=== PATIENT | female | born 1995 | race Caucasian/White ===

== ENCOUNTER 2017-03-25 09:01 | Emergency (ER) | payer MEDICAID, OTHER ==
--- NOTE | 2017-03-25 09:20 | ERPHSYRPT ---
- History of Present Illness Time Seen by Provider: 03/25/17 09:14 Source: patient Exam Limitations: no limitations Patient Subjective Stated Complaint: Pt c/o sore throat and fever for last couple days. Also states that her "skin thomson and feels like acid". It hurts to wear clothes. Pt states she has had orange diarrhea and nausea since yesterday. Triage Nursing Assessment: Pt alert and oriented x 3. skin pink warm and dry. afebrile. throat appears to be red. airway patent Physician History: Sore throat began yesterday along with temp 101.7 this AM. Nasal congestion/ drainage, nausea and diarrhea. Took Tylenol with min relief. No cough, vomiting, chest pain or SOB. States gen fatigue with myalgia. Two daughters with OM's. Timing/Duration: yesterday Cough Quality/Degree: no cough Possible Cause: occasional episodes Modifying Factors: Improves With: other (swallowing worsens) Associated Symptoms: fever, chills, nasal congestion, nasal drainage, sore throat, No chest pain/soreness, No cough, No dizziness, No headache, No shortness of breath Allergies/Adverse Reactions: amphetamine aspartate [From Adderall] Allergy (Verified 07/27/16 05:21) amphetamine sulfate [From Adderall] Allergy (Verified 07/27/16 05:21) dextroamphetamine saccharate [From Adderall] Allergy (Verified 07/27/16 05:21) dextroamphetamine sulfate [From Adderall] Allergy (Verified 07/27/16 05:21) Home Medications: No Reportable Medications [No Reported Medications] 07/27/16 [History] Hx Tetanus, Diphtheria Vaccination/Date Given: Yes Hx Influenza Vaccination/Date Given: Yes Hx Pneumococcal Vaccination/Date Given: No Immunizations Up to Date: Yes - Review of Systems Constitutional: No Fever, No Chills Eyes: No Symptoms Ears, Nose, & Throat: Nose Congestion, Nose Discharge, Throat Pain, Painful Swallowing, No Ear Pain, No Ear Discharge Respiratory: No Cough, No Dyspnea Cardiac: No Chest Pain, No Edema, No Syncope Abdominal/Gastrointestinal: No Abdominal Pain, No Nausea, No Vomiting, No Diarrhea Genitourinary Symptoms: No Dysuria Musculoskeletal: No Back Pain, No Neck Pain Skin: No Rash Neurological: No Dizziness, No Focal Weakness, No Sensory Changes Psychological: No Symptoms Endocrine: No Symptoms All Other Systems: Reviewed and Negative - Past Medical History Pertinent Past Medical History: Yes GI Medical History: Gallbladder Disease Psycho-Social History: Anxiety, Attention Deficit Disorder, Bipolar, Depression - Past Surgical History Past Surgical History: Yes Gastrointestinal: Cholecystectomy Other Surgical History: WARTS REMOVED FROM FEET - Social History Smoking Status: Current every day smoker Exposure to second hand smoke: Yes Drug Use: none Patient Lives Alone: No Significant Family History: no pertinent family hx - Female History Hx Last Menstrual Period: 2 weeks ago - Nursing Vital Signs Nursing Vital Signs: Initial Vital Signs Temperature 99 F Temperature Source Oral Pulse Rate 97 Respiratory Rate 16 Blood Pressure [Right Arm] 125/76 Pain Intensity 9 - Physical Exam General Appearance: no apparent distress, alert Eye Exam: PERRL/EOMI, eyes nml inspection Ears, Nose, Throat Exam: normal ENT inspection, TMs normal, moist mucous membranes, pharyngeal erythema, No tonsillar exudate Neck Exam: normal inspection, non-tender, supple, full range of motion Respiratory Exam: normal breath sounds, lungs clear, No respiratory distress Cardiovascular Exam: regular rate/rhythm, normal heart sounds Gastrointestinal/Abdomen Exam: soft, No tenderness Back Exam: normal inspection, No CVA tenderness, No vertebral tenderness Extremity Exam: normal inspection, normal range of motion Neurologic Exam: alert, oriented x 3, cooperative, normal mood/affect, sensation nml, No motor deficits Skin Exam: normal color, warm, dry, No rash Lymphatic Exam: No adenopathy SpO2: 100 Oxygen Delivery: Room Air - Course Nursing assessment & vital signs reviewed: Yes Ordered Tests: Active Orders 24 hr Category Date Time Status STREP SCREEN-BETA A Stat Lab 03/25/17 09:21 Completed Medication Summary Discontinued Medications Generic Name Dose Route Start Last Admin Trade Name Freq PRN Reason Stop Dose Admin Penicillin G Benzathine 1.2 mu 03/25/17 10:02 Bicillin L-A 1.2 Mu/2ml Syringe IM 03/25/17 10:03 STAT ONE Lab/Rad Data: Laboratory Results 03/25/17 Range/Units 09:21 Streptococcus Screen POSITIVE (Negative) - Progress Progress: improved Progress Note: 03/25/17 10:03 Strep positive. Pt. given Bicillin LA 1.2 million units Antibiotics given: Yes Counseled pt/family regarding: lab results, diagnosis - Departure Time of Disposition: 10:04 Departure Disposition: Home Clinical Impression: Strep pharyngitis, Pharyngitis Condition: Stable Critical Care Time: No Instructions: Strep Throat Additional Instructions: Motrin or Tylenol for fever May use Chloraseptic sprays/throat lozenges for sore throat. Return for worse sore throat, fever, difficulty swallowing or any problems.
[2017-03-25] MEDS ORDERED: Bicillin L-A 1.2 Mu/2ML SYRINGE IM ONE ×2 (10:02→10:07)
[2017-03-25 10:30] VITALS: BP 113/71; PULSE 93; O2SAT 97
== END 2017-03-25 10:30 | disposition home or self-care (01) ==
LOC: ED 09:01
DX: J02.0 Streptococcal pharyngitis (principal)
CPT/HCPCS: 87430; 96372; 99284; J0561

== ENCOUNTER 2017-07-23 | Emergency (ER) | payer OTHER ==
[2017-07-23 00:17] VITALS: O2SAT 99
[2017-07-23] MEDS ORDERED: Carafate 1 GM PO ONE ×2 (00:18→00:24)
[2017-07-23] MEDS ORDERED: TORAdol 30 mg Injection IV ONE (00:27)
--- NOTE | 2017-07-23 00:27 | ERPHSYRPT ---
- History of Present Illness Time Seen by Provider: 07/23/17 00:10 Historian: patient Exam Limitations: no limitations Physician History: chest pain x 2 days; anterior mid sternum; burning; no travel; no exposures; no prior hx; no cough or SOB; no fever or chills; no trauma; increased with deep breath; no other complaints or symptoms Timing/Duration: yesterday (onset), intermittent, worse Activities at Onset: rest Quality: burning Location: central Chest Pain Radiation: no radiation Severity of Pain-Max: moderate Severity of Pain-Current: moderate Modifying Factors: Improves With: breathing Associated Symptoms: heartburn, hurts to breathe Prior Chest Pain/Cardiac Workup: no prior chest pain Nitro Today/Relief: no nitro taken today Aspirin Treatment Today: no aspirin today Allergies/Adverse Reactions: amphetamine [From Adderall] Allergy (Verified 07/23/17 00:25) dextroamphetamine [From Adderall] Allergy (Verified 07/23/17 00:25) - Review of Systems Constitutional: No Symptoms Eyes: No Symptoms Ears, Nose, & Throat: No Symptoms Respiratory: No Cough, No Dyspnea, No Wheezing Cardiac: Chest Pain, No Palpitations, No Syncope Abdominal/Gastrointestinal: No Abdominal Pain, No Nausea, No Vomiting, No Diarrhea Genitourinary Symptoms: No Symptoms Musculoskeletal: No Symptoms Skin: No Symptoms Neurological: No Symptoms Psychological: Anxiety, No Alcohol Abuse, No Drug Abuse Endocrine: No Symptoms Hematologic/Lymphatic: No Symptoms Immunological/Allergic: No Symptoms - Past Medical History Pertinent Past Medical History: Yes Psycho-Social History: Attention Deficit Disorder, Bipolar - Past Surgical History Past Surgical History: Yes Gastrointestinal: Cholecystectomy - Social History Smoking Status: Current every day smoker Exposure to second hand smoke: Yes Alcohol Use: Socially Drug Use: none Patient Lives Alone: No Significant Family History: heart disease, hypertension - Female History Hx Now: No - Nursing Vital Signs Nursing Vital Signs: Initial Vital Signs Temperature 98.2 F 07/23/17 00:01 Pulse Rate 94 H 07/23/17 00:01 Respiratory Rate 20 07/23/17 00:01 Blood Pressure 130/99 07/23/17 00:01 O2 Sat by Pulse Oximetry 99 07/23/17 00:01 Pain Scale Pain Intensity 6 - Physical Exam General Appearance: mild distress, alert, thin Eye Exam: PERRL/EOMI, eyes nml inspection, No photophobia Ears, Nose, Throat Exam: normal ENT inspection, TMs normal, pharynx normal, moist mucous membranes Neck Exam: normal inspection, non-tender, supple, full range of motion, No meningismus, No JVD, No subcutaneous emphysema Respiratory Exam: normal breath sounds, lungs clear, airway intact, No chest tenderness, No respiratory distress, No rhonchi, No wheezing, No pleural rub Cardiovascular Exam: regular rate/rhythm, normal heart sounds, normal peripheral pulses, capillary refill <2 sec, No murmur, No friction rub Gastrointestinal/Abdomen Exam: soft, normal bowel sounds, No tenderness, No guarding, No rebound, No organomegaly Pelvic Exam: deferred Rectal Exam: deferred Back Exam: normal inspection, normal range of motion, No CVA tenderness, No vertebral tenderness, No rash Extremity Exam: normal inspection, normal range of motion, No ana's sign, No pedal edema Neurologic Exam: alert, oriented x 3, cooperative, room clerk II-XII nml as tested, normal mood/affect, nml cerebellar function, nml station & gait Skin Exam: normal color, warm, dry, No rash SpO2 Interpretation: normal SpO2: 99 Oxygen Delivery: Room Air - Course Nursing assessment & vital signs reviewed: Yes EKG Interpreted by Me: RATE (60), Sinus Rhythm, NORMAL AXIS, NORMAL INTERVALS, NORMAL QRS, NORMAL ST-T Rhythm Strip: Rate (60), Normal Sinus Rhythm - Radiology Exams Chest X-ray Interpretation: Interpreted by me, Negative, No Pneumonia, No Pneumothorax , Nml Alignment, Nml Heart Size, No Infiltrates, Other (some stranding LLL suspect atelectasis) Ordered Tests: Active Orders 24 hr Category Date Time Status Diesel Engine Mechanic Apprentice STAT Care 07/23/17 00:19 Active EKG-ER Only STAT Care 07/23/17 00:18 Active Pulse Oximetry (ED) STAT Care 07/23/17 00:18 Active Re-Check Vital Signs STAT Care 07/23/17 00:18 Active CHEST 1 VIEW (PORTABLE) Stat Exams 07/23/17 12:44 Taken BMP Stat Lab 07/23/17 00:37 Completed CBC W DIFF Stat Lab 07/23/17 00:37 Completed Medication Summary Generic Name Dose Route Start Last Admin Trade Name Freq PRN Reason Stop Dose Admin Potassium Chloride 40 meq 07/23/17 10:00 07/23/17 01:33 Potassium Chl 40 Meq/30 Ml Oral Solution PO 08/22/17 09:59 40 meq DAILY MARIAN Administration Discontinued Medications Generic Name Dose Route Start Last Admin Trade Name Alcira PRN Reason Stop Dose Admin Ketorolac Tromethamine 30 mg 07/23/17 00:27 07/23/17 00:33 Toradol 30 Mg Injection IV 07/23/17 00:28 30 mg STAT ONE Administration Ketorolac Tromethamine Confirm 07/23/17 00:32 Toradol 30 Mg Injection Administered 07/23/17 00:33 Dose 30 mg .ROUTE .STK-MED ONE Olanzapine 10 mg 07/23/17 01:10 07/23/17 01:14 Zyprexa Zydis 5 Mg PO 07/23/17 01:11 10 mg STAT ONE Administration Olanzapine Confirm 07/23/17 01:13 Zyprexa Zydis 5 Mg Administered 07/23/17 01:14 Dose 10 mg PO .STK-MED ONE Sucralfate 1 g 07/23/17 00:18 07/23/17 00:25 Carafate 1 Gm PO 07/23/17 00:19 1 g STAT ONE Administration Sucralfate Confirm 07/23/17 00:24 Carafate 1 Gm Administered 07/23/17 00:25 Dose 1 g PO .STK-MED ONE Lab/Rad Data: Laboratory Result Diagrams 07/23/17 00:37 07/23/17 00:37 Laboratory Results 07/23/17 07/23/17 Range/Units 00:37 00:37 WBC 7.9 (4.0-10.5) K/mm3 RBC 4.54 (4.1-5.4) M/mm3 Hgb 13.1 (12.0-16.0) gm/dl Hct 39.0 (35-47) % MCV 85.9 (78-100) fl MCH 28.9 (26-32) pg MCHC 33.6 (32-36) g/dl RDW 13.2 (11.5-14.0) % Plt Count 196 (150-450) K/mm3 MPV 11.1 H (6-9.5) fl Gran % 57.5 (36.0-66.0) % Lymphocytes % 34.0 (24.0-44.0) % Monocytes % 6.9 (0.0-12.0) % Eosinophils % 1.5 (0.00-5.0) % Basophils % 0.1 (0.0-0.4) % Basophils # 0.01 (0-0.4) Sodium 140 (136-145) mEq/L Potassium 3.1 L (3.5-5.1) mEq/L Chloride 105 (98-107) mEq/L Carbon Dioxide 23.4 (21-32) mEq/L Anion Gap 14.9 (5-15) MEQ/L BUN 11 (9-20) mg/dL Creatinine 0.86 (0.55-1.30) mg/dl Estimated GFR > 60 ML/MIN Glucose 93 (70-110) MG/DL Calcium 9.1 (8.5-10.1) mg/dL reviewed - Progress Progress: improved (after meds), re-examined (after xr and meds) Air Movement: good Progress Note: 07/23/17 00:26 IV started; ekg wnl; labs pending; will give meds; monitor and recheck 07/23/17 01:09 rechecked and some relief of discomfort with meds; cbc wnl, cxr wnl; sats ok; vs okwill monitor and recheck 07/23/17 01:30 K+ = low 3.1; will give K+ supplement and recheck; treatment plan discussed and instructions given Blood Culture(s) Obtained: No Antibiotics given: No Counseled pt/family regarding: lab results, diagnosis, need for follow-up, rad results, smoking cessation - Departure Time of Disposition: 01:34 Departure Disposition: Home Clinical Impression: Hypokalemia, Chest pain, Anxiety Condition: Stable Critical Care Time: No Referrals: DOCTOR,NO FAMILY [Primary Care Provider] - Instructions: Anxiety -- Adult, Atypical Chest Pain, Hypokalemia Additional Instructions: K+ rich diet; follow up lmd Follow-up with family doctor as directed. Call for appointment. Return if any problems. If you smoke please stop. Call or follow up with your family doctor for assistance if you need it to stop. Please wear your seatbelt when driving. Have a nice day. Thank you for allowing us to participate in your care today. :o) Dr Edi Sparrow Prescriptions: Potassium Chloride 20 Meq Inj [Potassium Chloride 20 MEQ INJECTION] 20 meq IV QAM #20 vial
[2017-07-23] MEDS ORDERED: TORAdol 30 mg Injection ONE (00:32)
[2017-07-23 00:47] LABS: BASOPHIL % 0.1 % (0.0-0.4); Eosinophil % 1.5 % (0.00-5.0); Granulocytes % 57.5 % (36.0-66.0); Mean Cell Volume 85.9 fl (78-100); Mean Corpuscular Hemoglobin 28.9 pg (26-32); Mean Platelet Volume 11.1 fl (6-9.5); Monocytes % 6.9 % (0.0-12.0); Platelet Count 196 K/mm3 (150-450); Red Blood Count 4.54 M/mm3 (4.1-5.4); Red Cell Distribution Width 13.2 % (11.5-14.0); White Blood Count 7.9 K/mm3 (4.0-10.5)
[2017-07-23 01:04] LABS: ANION GAP 14.9 MEQ/L (5-15); BLOOD UREA NITROGEN 11 mg/dL (9-20); CHLORIDE 105 mEq/L (98-107); Carbon Dioxide 23.4 mEq/L (21-32); Glucose 93 MG/DL (70-110); Potassium 3.1 mEq/L (3.5-5.1); SODIUM 140 mEq/L (136-145)
[2017-07-23 01:10] VITALS: BP 110/76; PULSE 66
[2017-07-23] MEDS ORDERED: Zyprexa Zydis 5 MG PO ONE ×2 (01:10→01:13)
[2017-07-23] MEDS ORDERED: POTASSIUM CHL 40 MEQ/30 ML ORAL SOLUTION ONE (01:33)
--- NOTE | 2017-07-23 08:13 | XRAY ---
Indication: Chest pain. Comparison: None Portable chest demonstrates normal heart, lungs, and bony thorax with a few incidental calcified granulomas.
[2017-07-23] MEDS ORDERED: POTASSIUM CHL 40 MEQ/30 ML ORAL SOLUTION PO SCH (10:00)
== END 2017-07-23 01:47 | disposition home or self-care (01) ==
LOC: ED → MERGE → ED 01:47
DX: E87.6 Hypokalemia (principal); R07.9 Chest pain, unspecified; F41.9 Anxiety disorder, unspecified
CPT/HCPCS: 36415; 71010; 80048; 85025; 93005; 93041; 96374; 99284; J1885; A9270-GY

== ENCOUNTER 2017-12-14 16:23 | Emergency (ER) | payer OTHER ==
[2017-12-14 16:53] VITALS: O2SAT 98
--- NOTE | 2017-12-14 16:58 | ERPHSYRPT ---
- History of Present Illness Time Seen by Provider: 12/14/17 16:52 Source: patient Exam Limitations: no limitations Physician History: patient states she's had sore throat and dry cough for past 2 days. Patient states progressive her family has similar illness. Patient denies any earache, vomiting, diarrhea, shortness of breath, dizziness or weakness Timing/Duration: day(s) (2) Cough Quality/Degree: dry cough Possible Cause: no prior episodes Modifying Factors: Improves With: coughing (worsens), exertion (worsens) Associated Symptoms: cough (dry), nasal congestion, nasal drainage, sore throat , No fever, No chills, No dizziness, No earache International travel in last 2 weeks: No Allergies/Adverse Reactions: amphetamine [From Adderall] Allergy (Verified 07/23/17 00:25) amphetamine aspartate [From Adderall] Allergy (Verified 07/27/16 05:21) amphetamine sulfate [From Adderall] Allergy (Verified 07/27/16 05:21) dextroamphetamine [From Adderall] Allergy (Verified 07/23/17 00:25) dextroamphetamine saccharate [From Adderall] Allergy (Verified 07/27/16 05:21) dextroamphetamine sulfate [From Adderall] Allergy (Verified 07/27/16 05:21) Home Medications: No Reportable Medications [No Reported Medications] 07/27/16 [History] Hx Tetanus, Diphtheria Vaccination/Date Given: Yes Hx Influenza Vaccination/Date Given: Yes Hx Pneumococcal Vaccination/Date Given: No - Review of Systems Constitutional: Malaise, No Fever, No Chills Eyes: No Symptoms Ears, Nose, & Throat: Nose Congestion, Nose Discharge, Throat Pain Respiratory: Cough, No Dyspnea, No Dyspnea on Exertion (HANNA) Cardiac: No Chest Pain, No Edema, No Syncope Abdominal/Gastrointestinal: No Abdominal Pain, No Nausea, No Vomiting, No Diarrhea Genitourinary Symptoms: No Dysuria Musculoskeletal: No Back Pain, No Neck Pain Skin: No Rash Neurological: No Dizziness, No Focal Weakness, No Sensory Changes Psychological: No Symptoms Endocrine: No Symptoms All Other Systems: Reviewed and Negative - Past Medical History Pertinent Past Medical History: Yes GI Medical History: Gallbladder Disease Psycho-Social History: Bipolar, Depression, Anxiety, Attention Deficit Disorder - Past Surgical History Past Surgical History: Yes Gastrointestinal: Cholecystectomy Other Surgical History: WARTS REMOVED FROM FEET - Social History Smoking Status: Current every day smoker Exposure to second hand smoke: Yes Alcohol Use: Socially Drug Use: none Patient Lives Alone: No Significant Family History: heart disease, hypertension, no pertinent family hx - Physical Exam General Appearance: no apparent distress, alert Eye Exam: PERRL/EOMI, eyes nml inspection Ears, Nose, Throat Exam: normal ENT inspection, TMs normal, pharynx normal, moist mucous membranes Neck Exam: normal inspection, non-tender, supple, full range of motion Respiratory Exam: normal breath sounds, lungs clear, No respiratory distress Cardiovascular Exam: regular rate/rhythm, normal heart sounds Gastrointestinal/Abdomen Exam: soft, No tenderness Back Exam: normal inspection, No CVA tenderness, No vertebral tenderness Extremity Exam: normal inspection, normal range of motion Neurologic Exam: alert, oriented x 3, cooperative, normal mood/affect, sensation nml, No motor deficits Skin Exam: normal color, warm, dry, No rash Lymphatic Exam: No adenopathy - Course Nursing assessment & vital signs reviewed: Yes - Progress Progress: improved Counseled pt/family regarding: diagnosis - Departure Time of Disposition: 16:57 Departure Disposition: Home Clinical Impression: URI (upper respiratory infection) Condition: Stable Critical Care Time: No Referrals: DOCTOR,NO FAMILY [Primary Care Provider] - Instructions: Viral Upper Respiratory Infection, Adult (DC) Additional Instructions: May take Tylenol or Motrin for fever/pain. Return for worse sore throat, cough, shortness of breath, vomiting, weakness, dizziness or any problems
[2017-12-14 17:03] VITALS: BP 116/87; PULSE 76
== END 2017-12-14 17:08 | disposition home or self-care (01) ==
LOC: ED 16:23
DX: J06.9 Acute upper respiratory infection, unspecified (principal)
CPT/HCPCS: 99281

== ENCOUNTER 2018-03-13 18:09 | Emergency (ER) | payer OTHER ==
[2018-03-13 18:56] VITALS: O2SAT 100
[2018-03-13] MEDS ORDERED: Phenergan 25 MG INJ IV ONE (19:23)
[2018-03-13] MEDS ORDERED: Sodium Chloride 0.9% 1000 ML 1,000 ML IV STA (19:23)
--- NOTE | 2018-03-13 19:29 | ERPHSYRPT ---
- History of Present Illness Time Seen by Provider: 03/13/18 19:24 Source: patient Exam Limitations: no limitations Patient Subjective Stated Complaint: c/o pain in rt side radiating to back and skin pain all over body Triage Nursing Assessment: 15 weeks with triplets. c/o pain in rt side radiating to back and down rt leg. pt states has had 2 ctrx in past hour Physician History: The patient is a 22-year-old female at 15 weeks with triplets, with 2 being identical and 1 separate, who comes in complaining of vomiting since yesterday and now right side pain that began 4 hours ago and has progressed to crampy abdominal pain low in the pelvic region. The patient sees Dr. Falcon OB at [facility] who did a cerclage. The patient initially was coming in simply because of her side pain. But for the last one hour the side pain has progressed to cramping pelvic pain. The OB nurse was here to evaluate the patient when she came in and tells me that the patient has contractions 2-4 minutes apart. Timing/Duration: today Severity: moderate Modifying Factors: Improves With: eating Associated Symptoms: nausea, vomiting, abdominal pain Allergies/Adverse Reactions: amphetamine [From Adderall] Allergy (Verified 07/23/17 00:25) amphetamine aspartate [From Adderall] Allergy (Verified 07/27/16 05:21) amphetamine sulfate [From Adderall] Allergy (Verified 07/27/16 05:21) dextroamphetamine [From Adderall] Allergy (Verified 07/23/17 00:25) dextroamphetamine saccharate [From Adderall] Allergy (Verified 07/27/16 05:21) dextroamphetamine sulfate [From Adderall] Allergy (Verified 07/27/16 05:21) Home Medications: No Reportable Medications [No Reported Medications] 07/27/16 [History] Hx Tetanus, Diphtheria Vaccination/Date Given: Yes Hx Influenza Vaccination/Date Given: Yes Hx Pneumococcal Vaccination/Date Given: No - Review of Systems Constitutional: No Fever, No Chills Eyes: No Symptoms Ears, Nose, & Throat: No Symptoms Respiratory: No Cough, No Dyspnea Cardiac: No Chest Pain, No Edema, No Syncope Abdominal/Gastrointestinal: Abdominal Pain (cramping), Nausea, Vomiting, No Diarrhea Genitourinary Symptoms: Musculoskeletal: No Back Pain, No Neck Pain Skin: No Rash Neurological: No Dizziness, No Focal Weakness, No Sensory Changes Psychological: No Symptoms Endocrine: No Symptoms Hematologic/Lymphatic: No Symptoms Immunological/Allergic: No Symptoms All Other Systems: Reviewed and Negative - Past Medical History Pertinent Past Medical History: Yes GI Medical History: Gallbladder Disease Psycho-Social History: Bipolar, Depression, Anxiety, Attention Deficit Disorder - Past Surgical History Past Surgical History: Yes Gastrointestinal: Cholecystectomy Other Surgical History: WARTS REMOVED FROM FEET circlage 02/23/18 - Social History Smoking Status: Former smoker Exposure to second hand smoke: Yes Alcohol Use: Socially Drug Use: none Patient Lives Alone: No Significant Family History: heart disease, hypertension, no pertinent family hx - Female History Hx Last Menstrual Period: 11/29/17 Hx Now: Yes Expected Date of Delivery: 09/05/18 - Nursing Vital Signs Nursing Vital Signs: Initial Vital Signs Temperature 98.7 F 03/13/18 18:43 Pulse Rate 75 03/13/18 18:43 Respiratory Rate 18 03/13/18 18:43 Blood Pressure 105/66 03/13/18 18:43 O2 Sat by Pulse Oximetry 100 03/13/18 18:43 Pain Scale Pain Intensity [Right Back] 7 Pain Intensity 9 - Physical Exam General Appearance: moderate distress Eye Exam: PERRL/EOMI, eyes nml inspection Ears, Nose, Throat Exam: normal ENT inspection, TMs normal, pharynx normal, moist mucous membranes Neck Exam: normal inspection, non-tender, supple, full range of motion Respiratory Exam: normal breath sounds, lungs clear, No respiratory distress Cardiovascular Exam: regular rate/rhythm, normal heart sounds, normal peripheral pulses Gastrointestinal/Abdomen Exam: tenderness Pelvic Exam: not done Rectal Exam: not done Back Exam: normal inspection, normal range of motion, No CVA tenderness, No vertebral tenderness Extremity Exam: normal inspection, normal range of motion, pelvis stable Neurologic Exam: alert, oriented x 3, cooperative, normal mood/affect, nml cerebellar function, nml station & gait, sensation nml, No motor deficits Skin Exam: normal color, warm, dry, No rash Lymphatic Exam: No adenopathy SpO2 Interpretation: normal SpO2: 100 Oxygen Delivery: Room Air Ordered Tests: Active Orders 24 hr Category Date Time Status IV Insertion STAT Care 03/13/18 19:23 Active BMP Stat Lab 03/13/18 19:39 Completed CBC W DIFF Stat Lab 03/13/18 19:39 Completed LIPASE Stat Lab 03/13/18 19:39 Completed Lactic Acid Stat Lab 03/13/18 19:55 Completed UA W/RFX UR CULTURE Stat Lab 03/13/18 19:23 Ordered Urine Triage Profile Stat Lab 03/13/18 19:23 Ordered Medication Summary Discontinued Medications Generic Name Dose Route Start Last Admin Trade Name Freq PRN Reason Stop Dose Admin Sodium Chloride 1,000 mls @ 999 mls/hr 03/13/18 19:23 03/13/18 19:55 Sodium Chloride 0.9% 1000 Ml IV 03/13/18 20:23 999 mls/hr .Q1H1M STA Administration Indomethacin 100 mg 03/13/18 19:43 03/13/18 19:55 Indocin 25 Mg PO 03/13/18 19:44 100 mg STAT ONE Administration Indomethacin Confirm 03/13/18 19:50 Indocin 25 Mg Administered 03/13/18 19:51 Dose 100 mg .ROUTE .STK-MED ONE Promethazine HCl 25 mg 03/13/18 19:23 03/13/18 19:55 Phenergan 25 Mg Inj IV 03/13/18 19:24 25 mg STAT ONE Administration Promethazine HCl Confirm 03/13/18 19:49 Phenergan 25 Mg Inj Administered 03/13/18 19:50 Dose 25 mg .ROUTE .STK-MED ONE Lab/Rad Data: Laboratory Result Diagrams 03/13/18 19:39 03/13/18 19:39 Laboratory Results 03/13/18 03/13/18 03/13/18 Range/Units 19:55 19:39 19:39 WBC 10.4 (4.0-10.5) K/mm3 RBC 4.02 L (4.1-5.4) M/mm3 Hgb 12.2 (12.0-16.0) gm/dl Hct 35.3 (35-47) % MCV 87.8 (78-100) fl MCH 30.3 (26-32) pg MCHC 34.6 (32-36) g/dl RDW 13.8 (11.5-14.0) % Plt Count 201 (150-450) K/mm3 MPV 10.5 H (6-9.5) fl Gran % 75.8 H (36.0-66.0) % Eos # (Auto) 0.12 (0-0.5) Absolute Lymphs (auto) 1.67 (1.0-4.6) Absolute Monos (auto) 0.71 (0.0-1.3) Lymphocytes % 16.0 L (24.0-44.0) % Monocytes % 6.8 (0.0-12.0) % Eosinophils % 1.2 (0.00-5.0) % Basophils % 0.2 (0.0-0.4) % Absolute Granulocytes 7.90 H (1.4-6.9) Basophils # 0.02 (0-0.4) Sodium 134 L (137-145) mmol/L Potassium 3.5 (3.5-5.1) mmol/L Chloride 102 (98-107) mmol/L Carbon Dioxide 20 L (22-30) mmol/L Anion Gap 15.8 H (5-15) MEQ/L BUN 11 (7-17) mg/dL Creatinine 0.51 L (0.52-1.04) mg/dL Estimated GFR > 60.0 ML/MIN Glucose 76 (74-106) mg/dL Lactic Acid 1.4 (0.4-2.0) Calcium 9.3 (8.4-10.2) mg/dL Lipase 129 (23-300) U/L - Progress Progress: unchanged Progress Note: 03/13/18 19:[address] Falcon, the patient's OB doctor at [phone] at [facility] in [place] and explained the situation that the patient is experiencing, he recommends indomethacin 100 mg orally or rectally. He states he was the OB doctor who did the transabdominal cerclage on the patient. He knows her quite well. He is arranging air transportation if the weather permits or possibly ground transport if we are unable to provide ground transport in a timely fashion. I explained to him that R ambulance crews in the [facility] were out and that trans-care from [place] would be more than an hour before they even arrived at the hospital. Dr. Falcon stated that indomethacin should begin to relieve her cramping by [address] Falcon recommended air transport and was arranging for it. 03/13/18 20:40 03/13/18 20:57 pt given indomethacin 100 mg po and is beginning to feel better, with less pain. Air transport arrives to transport pt to [facility]. Counseled pt/family regarding: diagnosis - Departure Time of Disposition: 20:44 Departure Disposition: Transfer (Transfer by air transport to [facility] per recommendation of Dr Archana Rendon.) Clinical Impression: Threatened spontaneous , Hyperemesis gravidarum Condition: Fair Critical Care Time: No Referrals: DOCTOR,NO FAMILY [Primary Care Provider] -
[2018-03-13] MEDS ORDERED: Indocin 25 MG PO ONE (19:43)
[2018-03-13] MEDS ORDERED: Phenergan 25 MG INJ ONE (19:49)
[2018-03-13] MEDS ORDERED: Indocin 25 MG ONE (19:50)
[2018-03-13 19:59] LABS: BASOPHIL % 0.2 % (0.0-0.4); Basophil (Absolute #) 0.02 (0-0.4); Eosinophil % 1.2 % (0.00-5.0); Eosinophil (Absolute #) 0.12 (0-0.5); Granulocytes % 75.8 % (36.0-66.0); Hematocrit 35.3 % (35-47); Hemoglobin 12.2 gm/dl (12.0-16.0); Lymphocyte (Absolute #) 1.67 (1.0-4.6); Mean Cell Volume 87.8 fl (78-100); Mean Corpuscular Hemoglobin 30.3 pg (26-32); Mean Corpuscular Hgb Concent. 34.6 g/dl (32-36); Mean Platelet Volume 10.5 fl (6-9.5); Monocyte (Absolute #) 0.71 (0.0-1.3); Monocytes % 6.8 % (0.0-12.0); Platelet Count 201 K/mm3 (150-450); Red Blood Count 4.02 M/mm3 (4.1-5.4); Red Cell Distribution Width 13.8 % (11.5-14.0); White Blood Count 10.4 K/mm3 (4.0-10.5)
[2018-03-13 20:25] LABS: ANION GAP 15.8 MEQ/L (5-15); BLOOD UREA NITROGEN 11 mg/dL (7-17); CHLORIDE 102 mmol/L (98-107); Calcium 9.3 mg/dL (8.4-10.2); Carbon Dioxide 20 mmol/L (22-30); Creatinine 1 0.51 mg/dL (0.52-1.04); Glucose 76 mg/dL (74-106); LIPASE 129 U/L (23-300); Potassium 3.5 mmol/L (3.5-5.1); SODIUM 134 mmol/L (137-145)
[2018-03-13 20:51] VITALS: BP 103/63; PULSE 67
[2018-03-13] MEDS ORDERED: Magnesium Sulfate 40 Gm/1000 Ml H2O Premix*** 1,000 ML IV ONE (21:03)
== END 2018-03-13 21:10 ==
LOC: ED 18:09
DX: O20.0 Threatened abortion (principal); O21.0 Mild hyperemesis gravidarum; Z3A.15 15 weeks gestation of pregnancy
CPT/HCPCS: 36000; 36415; 80048; 83605; 83690; 85025; 96360; 96374; 99283; 99285; J2550; A9270-GY

== ENCOUNTER 2018-05-04 01:58 | Observation (INO) | payer OTHER ==
[2018-05-04] MEDS ORDERED: Lactated Ringers 1,000 ML IV SCH ×3 (02:00→04:25)
[2018-05-04] MEDS ORDERED: Lactated Ringers 1,000 ML IV ONE (02:02)
[2018-05-04] MEDS: BRETHINE 1 MG/ML SQ ONE ×2 (02:05→03:20)
[2018-05-04] MEDS ORDERED: Magnesium Sulfate 40 Gm/1000 Ml H2O Premix*** 1,000 ML IV ONE (04:16)
[2018-05-04] MEDS ORDERED: Magnesium Sulfate 40 Gm/1000 Ml H2O Premix*** 1,000 ML IV SCH ×2 (04:25→04:30)
[2018-05-04 05:43] VITALS: PULSE 86; O2SAT 97
[2018-05-04 06:35] LABS: BASOPHIL % 0.2 % (0.0-0.4); Basophil (Absolute #) 0.02 (0-0.4); Eosinophil % 0.4 % (0.00-5.0); Eosinophil (Absolute #) 0.04 (0-0.5); Granulocyte Absolute (ANC) 7.52 (1.4-6.9); Granulocytes % 80.9 % (36.0-66.0); Hematocrit 32.1 % (35-47); Hemoglobin 10.8 gm/dl (12.0-16.0); Lymphocyte (Absolute #) 1.14 (1.0-4.6); Lymphocytes % 12.2 % (24.0-44.0); Mean Cell Volume 93.9 fl (78-100); Mean Corpuscular Hgb Concent. 33.6 g/dl (32-36); Mean Platelet Volume 11.6 fl (6-9.5); Monocyte (Absolute #) 0.59 (0.0-1.3); Monocytes % 6.3 % (0.0-12.0); Platelet Count 164 K/mm3 (150-450); Red Blood Count 3.42 M/mm3 (4.1-5.4); Red Cell Distribution Width 14.2 % (11.5-14.0); White Blood Count 9.3 K/mm3 (4.0-10.5)
[2018-05-04 06:36] LABS: INR 0.9 (0.8-3.0)
[2018-05-04 06:38] LABS: PTT 24.7 SECONDS (25.3-37.0)
[2018-05-04 06:41] LABS: ALBUMIN 3.1 g/dL (3.5-5.0); ALKALINE PHOSPHATASE 79 U/L (38-126); ANION GAP 11.1 MEQ/L (5-15); BILIRUBIN,TOTAL < 0.10 mg/dL (0.2-1.3); BLOOD UREA NITROGEN 9 mg/dL (7-17); CHLORIDE 106 mmol/L (98-107); Calcium 8.4 mg/dL (8.4-10.2); Carbon Dioxide 22 mmol/L (22-30); Creatinine 1 0.49 mg/dL (0.52-1.04); Glucose 99 mg/dL (74-106); SGOT/AST 26 U/L (14-36); SGPT/ALT 19 U/L (0-35); SODIUM 136 mmol/L (137-145); Total Protein 5.6 g/dL (6.3-8.2)
[2018-05-04 06:43] LABS: Mean Corpuscular Hemoglobin 31.5 pg (26-32)
[2018-05-04 06:44] LABS: Amphetamine,Urine NEGATIVE (NEGATIVE)
[2018-05-04 06:52] LABS: Potassium 2.8 mmol/L (3.5-5.1)
[2018-05-04 07:00] LABS: Appearance HAZY (CLEAR); Bacteria PACKED /HPF (NEGATIVE); Bilirubin NEGATIVE (NEGATIVE); Blood NEGATIVE Ery/ul (0-5); Epithelial Cells RARE /HPF (FEW); Glucose NEGATIVE (NEGATIVE); Ketones NEGATIVE (NEGATIVE); Leukocyte Esterase 2+ (NEGATIVE); Nitrite NEGATIVE (NEGATIVE); Protein,Urine Dip NEGATIVE (Negative); RBC 0-2 /HPF (0-2); Urobilinogen NORMAL mg/dL (0-1); WBC 15-25 /HPF (0-5)
[2018-05-04 07:19] LABS: Barbiturate,Urine NEGATIVE (NEGATIVE); Benzodiazepine,Urine NEGATIVE (NEGATIVE); Cocaine,Urine NEGATIVE (NEGATIVE); Methadone,Urine NEGATIVE (NEGATIVE); Opiate,Urine NEGATIVE (NEGATIVE); PCP,Urine NEGATIVE (NEGATIVE); THC,Urine NEGATIVE (NEGATIVE)
[2018-05-04 08:10] VITALS: BP 131/71
[2018-05-05] MEDS ORDERED: BRETHINE 1 MG/ML SQ SCH (03:25)
== END 2018-05-04 08:00 | disposition short-term general hospital (02) ==
LOC: OB 01:58
PROVIDERS: ADMIT Family Medicine; ATTEND Family Medicine
DX: Z34.82 Encounter for supervision of other normal pregnancy, second trimester (principal)
CPT/HCPCS: 36415; 80053; 80307; 81000; 83735; 85025; 85610; 85730; 87077; 87086; 87186; G0378; 59025

== ENCOUNTER 2018-06-04 13:41 | Observation (INO) | payer OTHER ==
[2018-06-04] MEDS ORDERED: Lactated Ringers 1,000 ML IV SCH (15:00)
[2018-06-04 15:28] LABS: Appearance CLOUDY (CLEAR); Bilirubin NEGATIVE (NEGATIVE); Blood NEGATIVE Ery/ul (0-5); Glucose NEGATIVE (NEGATIVE); Ketones NEGATIVE (NEGATIVE); Leukocyte Esterase 2+ (NEGATIVE); Nitrite NEGATIVE (NEGATIVE); Protein,Urine Dip NEGATIVE (Negative); Urobilinogen NORMAL mg/dL (0-1)
[2018-06-04 15:29] LABS: BASOPHIL % 0.2 % (0.0-0.4); Basophil (Absolute #) 0.02 (0-0.4); Eosinophil % 1.4 % (0.00-5.0); Eosinophil (Absolute #) 0.14 (0-0.5); Granulocyte Absolute (ANC) 7.64 (1.4-6.9); Granulocytes % 77.9 % (36.0-66.0); Hematocrit 32.6 % (35-47); Hemoglobin 11.1 gm/dl (12.0-16.0); Lymphocyte (Absolute #) 1.48 (1.0-4.6); Lymphocytes % 15.1 % (24.0-44.0); Mean Cell Volume 93.1 fl (78-100); Mean Corpuscular Hemoglobin 31.7 pg (26-32); Mean Platelet Volume 10.8 fl (6-9.5); Monocyte (Absolute #) 0.53 (0.0-1.3); Monocytes % 5.4 % (0.0-12.0); Platelet Count 168 K/mm3 (150-450); Red Cell Distribution Width 14.1 % (11.5-14.0); White Blood Count 9.8 K/mm3 (4.0-10.5)
[2018-06-04 15:32] LABS: Bacteria MODERATE /HPF (NEGATIVE); Epithelial Cells MODERATE /HPF (FEW); WBC >100 /HPF (0-5)
[2018-06-04 15:41] LABS: ALBUMIN 3.7 g/dL (3.5-5.0); ALKALINE PHOSPHATASE 104 U/L (38-126); ANION GAP 12.4 MEQ/L (5-15); BLOOD UREA NITROGEN 8 mg/dL (7-17); CHLORIDE 106 mmol/L (98-107); Calcium 8.8 mg/dL (8.4-10.2); Carbon Dioxide 23 mmol/L (22-30); Creatinine 1 0.41 mg/dL (0.52-1.04); Glucose 79 mg/dL (74-106); Potassium 3.9 mmol/L (3.5-5.1); SGOT/AST 20 U/L (14-36); SGPT/ALT 13 U/L (0-35); SODIUM 137 mmol/L (137-145); Total Protein 6.8 g/dL (6.3-8.2)
[2018-06-04 15:45] LABS: Amphetamine,Urine NEGATIVE (NEGATIVE); Barbiturate,Urine NEGATIVE (NEGATIVE); Benzodiazepine,Urine NEGATIVE (NEGATIVE); Cocaine,Urine NEGATIVE (NEGATIVE); Methadone,Urine NEGATIVE (NEGATIVE); Opiate,Urine NEGATIVE (NEGATIVE); PCP,Urine NEGATIVE (NEGATIVE); THC,Urine NEGATIVE (NEGATIVE)
[2018-06-04 18:40] VITALS: BP 115/79; PULSE 84
== END 2018-06-04 18:00 | disposition home or self-care (01) ==
LOC: OB 13:41 → UNDOADMOB 13:41 → UNDODISOB 18:00
PROVIDERS: ADMIT Family Medicine; ATTEND Family Medicine
DX: Z34.82 Encounter for supervision of other normal pregnancy, second trimester (principal)
CPT/HCPCS: 36415; 80053; 80307; 81000; 82962; 83735; 83986; 85025; 93005; 93012; G0378

== ENCOUNTER 2018-07-08 14:40 | Observation (INO) | payer OTHER ==
[2018-07-08 15:35] VITALS: PULSE 93
[2018-07-08 15:44] VITALS: BP 112/71
== END 2018-07-08 15:45 | disposition home or self-care (01) ==
LOC: UNDOADMOB 14:40 → OB 14:40 → UNDODISOB 15:45
PROVIDERS: ADMIT Family Medicine; ATTEND Family Medicine
DX: Z34.83 Encounter for supervision of other normal pregnancy, third trimester (principal)
CPT/HCPCS: 83986; G0378

== ENCOUNTER 2018-08-03 22:11 | Emergency (ER) | payer OTHER ==
[2018-08-03] MEDS ORDERED: Sodium Chloride 0.9% 1000 ML 1,000 ML IV STA (22:51)
--- NOTE | 2018-08-03 22:56 | ERPHSYRPT ---
- History of Present Illness Time Seen by Provider: 08/03/18 22:46 Source: patient Exam Limitations: no limitations Patient Subjective Stated Complaint: pt is alert and oriented. pt is ambulatory with a steady gait. pt comes in with c/o vaginal bleeding 3 weeks post c- section. she woke up with some hip pain. pt states that she had passed golfball sized clots earlier today and and then bright red blood that soaked through multiple pads. pt states she's had a foul odor from her discharge. pt states that she has had constant pain in her abd. abd is soft, unable to palpate fundus. pt pedal pulses weak but equal. pt skin is pale, dry, and warm. cap refil <3 seconds. pt has complaints of numbness in bilat legs from hips down. Triage Nursing Assessment: see above Physician History: 23-year-old white female 6 para 4 last with triplets delivered by . Patient arrives with complaint of vaginal bleeding she said that she initially had some mild vaginal bleeding initially after then today she passed some rather large clots she noticed that she had a vaginal bleeding. Patient states she is having pain in bilateral hips she states she has some paresthesias in her legs she is not having any problems walking and walked in here. Past medical history includes gallbladder disease, depression, anxiety, attention deficit disorder. Past surgical history includes cholecystectomy, , plantar warts removed , cerclage. Timing/Duration: today Severity: moderate Modifying Factors: Improves With: nothing Associated Symptoms: abdominal pain (lower abdominal pain and pain in the hips) , other (paresthesias to legs, vaginal bleeding), No nausea, No vomiting, No shortness of breath, No heartburn, No diaphoresis, No cough, No chills, No chest pain, No fever, No headaches, No loss of appetite, No malaise, No rash, No syncope, No seizure, No weakness Allergies/Adverse Reactions: amphetamine [From Adderall] Allergy (Verified 07/08/18 15:11) amphetamine aspartate [From Adderall] Allergy (Verified 07/08/18 15:11) amphetamine sulfate [From Adderall] Allergy (Verified 07/08/18 15:11) dextroamphetamine [From Adderall] Allergy (Verified 07/08/18 15:11) dextroamphetamine saccharate [From Adderall] Allergy (Verified 07/08/18 15:11) dextroamphetamine sulfate [From Adderall] Allergy (Verified 07/08/18 15:11) Home Medications: Escitalopram Oxalate [Lexapro] 20 mg PO HS 06/04/18 [History] Multivitamin [Flintstones] 2 each PO HS 06/04/18 [History] Hx Tetanus, Diphtheria Vaccination/Date Given: Yes Hx Influenza Vaccination/Date Given: Yes Hx Pneumococcal Vaccination/Date Given: No Immunizations Up to Date: Yes - Review of Systems Constitutional: No Fever, No Chills Eyes: No Symptoms Ears, Nose, & Throat: No Symptoms Respiratory: No Cough, No Dyspnea Cardiac: No Chest Pain, No Edema, No Syncope Abdominal/Gastrointestinal: Abdominal Pain, No Nausea, No Vomiting, No Diarrhea , No Constipation, No Hematemesis, No Hematochezia, No Melena, No Dysphagia, No Appetite Changes Genitourinary Symptoms: Vaginal Bleeding Musculoskeletal: Other (bilateral hip pain) Skin: No Symptoms Neurological: Other (paresthesias to both legs intermittent) Psychological: No Symptoms Endocrine: No Symptoms All Other Systems: Reviewed and Negative - Past Medical History Pertinent Past Medical History: Yes GI Medical History: Gallbladder Disease Psycho-Social History: Bipolar, Depression, Anxiety, Attention Deficit Disorder - Past Surgical History Past Surgical History: Yes Gastrointestinal: Cholecystectomy Female Surgical History: Section Other Surgical History: WARTS REMOVED FROM FEET circlage 02/23/18 - Social History Smoking Status: Current some day smoker Exposure to second hand smoke: No Alcohol Use: Socially Drug Use: none Patient Lives Alone: No Significant Family History: heart disease, hypertension, no pertinent family hx - Female History Hx Now: No - Nursing Vital Signs Nursing Vital Signs: Initial Vital Signs Temperature 97.9 F 08/03/18 22:12 Pulse Rate 59 L 08/03/18 22:12 Respiratory Rate 18 08/03/18 22:12 Blood Pressure 129/87 08/03/18 22:12 O2 Sat by Pulse Oximetry 99 08/03/18 22:12 Pain Scale Pain Intensity 9 - Physical Exam General Appearance: no apparent distress, alert Eye Exam: PERRL/EOMI, eyes nml inspection Ears, Nose, Throat Exam: normal ENT inspection (abdominal), TMs normal, pharynx normal, moist mucous membranes Neck Exam: normal inspection, non-tender, supple, full range of motion Respiratory Exam: normal breath sounds, lungs clear, No respiratory distress Cardiovascular Exam: regular rate/rhythm, normal heart sounds, normal peripheral pulses Gastrointestinal/Abdomen Exam: soft, other (abdominal incision well-healed), No tenderness Back Exam: normal inspection, normal range of motion, No CVA tenderness, No vertebral tenderness Extremity Exam: normal inspection, normal range of motion, pelvis stable Neurologic Exam: alert, oriented x 3, cooperative, 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 nml as tested, normal mood/affect, nml cerebellar function, nml station & gait, sensation nml, No motor deficits Skin Exam: normal color, warm, dry, No rash Lymphatic Exam: No adenopathy SpO2 Interpretation: normal (99%) SpO2: 99 Oxygen Delivery: Room Air Ordered Tests: Active Orders 24 hr Category Date Time Status IV Insertion STAT Care 08/03/18 22:51 Active Orthostatic Vital Signs STAT Care 08/03/18 22:56 Active AMYLASE Stat Lab 08/03/18 23:21 Completed BLOOD CULTURE Stat Lab 08/03/18 23:28 Received CBC W DIFF Stat Lab 08/03/18 23:21 Completed CMP Stat Lab 08/03/18 23:21 Completed CULTURE,URINE Stat Lab 08/03/18 23:35 Received HCG QUALITATIVE,SERUM Stat Lab 08/03/18 23:21 Completed LIPASE Stat Lab 08/03/18 23:21 Completed UA W/ MICROSCOPIC Stat Lab 08/03/18 23:35 Completed Medication Summary Generic Name Dose Route Start Last Admin Trade Name Freq PRN Reason Stop Dose Admin Ceftriaxone Sodium/Dextrose 1 g in 50 mls @ 100 mls/hr 08/04/18 00:01 Rocephin 1 Gm-D5w 50 Ml Bag IV 08/04/18 00:30 STAT STA Discontinued Medications Generic Name Dose Route Start Last Admin Trade Name Freq PRN Reason Stop Dose Admin Sodium Chloride 1,000 mls @ 999 mls/hr 08/03/18 22:51 08/03/18 23:32 Sodium Chloride 0.9% 1000 Ml IV 08/03/18 23:51 999 mls/hr .Q1H1M STA Administration Sodium Chloride Confirm 08/03/18 23:30 Sodium Chloride 0.9% 1000 Ml Administered 08/03/18 23:31 Dose 1,000 mls @ ud .ROUTE .STK-MED ONE Lab/Rad Data: Laboratory Result Diagrams 08/03/18 23:21 08/03/18 23:21 Laboratory Results 08/03/18 08/03/18 08/03/18 Range/Units 23:35 23:21 23:21 WBC (4.0-10.5) K/mm3 RBC (4.1-5.4) M/mm3 Hgb (12.0-16.0) gm/dl Hct (35-47) % MCV (78-100) fl MCH (26-32) pg MCHC (32-36) g/dl RDW (11.5-14.0) % Plt Count (150-450) K/mm3 MPV (6-9.5) fl Gran % (36.0-66.0) % Eos # (Auto) (0-0.5) Absolute Lymphs (auto) (1.0-4.6) Absolute Monos (auto) (0.0-1.3) Lymphocytes % (24.0-44.0) % Monocytes % (0.0-12.0) % Eosinophils % (0.00-5.0) % Basophils % (0.0-0.4) % Absolute Granulocytes (1.4-6.9) Basophils # (0-0.4) Sodium 142 (137-145) mmol/L Potassium 3.5 (3.5-5.1) mmol/L Chloride 106 (98-107) mmol/L Carbon Dioxide 28 (22-30) mmol/L Anion Gap 11.4 (5-15) MEQ/L BUN 8 (7-17) mg/dL Creatinine 0.73 (0.52-1.04) mg/dL Estimated GFR > 60.0 ML/MIN Glucose 79 (74-106) mg/dL Calcium 8.9 (8.4-10.2) mg/dL Total Bilirubin 0.20 (0.2-1.3) mg/dL AST 24 (14-36) U/L ALT 21 (0-35) U/L Alkaline Phosphatase 102 (38-126) U/L Serum Total Protein 6.3 (6.3-8.2) g/dL Albumin 3.8 (3.5-5.0) g/dL Amylase 52 (30-110) U/L Lipase 139 (23-300) U/L Serum , Qual NEGATIVE (Negative) Ur Collection Type VOID Urine Color YELLOW (YELLOW) Urine Appearance CLOUDY (CLEAR) Urine pH 7.0 (5-6) Ur Specific [place] 1.015 (1.005-1.025) Urine Protein 30 (Negative) Urine Ketones NEGATIVE (NEGATIVE) Urine Blood 250 (0-5) Jamie/ul Urine Nitrite NEGATIVE (NEGATIVE) Urine Bilirubin NEGATIVE (NEGATIVE) Urine Urobilinogen NORMAL (0-1) mg/dL Ur Leukocyte Esterase 2+ (NEGATIVE) Urine Microscopic RBC 50-100 (0-2) /HPF Urine Microscopic WBC >100 (0-5) /HPF Ur Epithelial Cells MODERATE (FEW) /HPF Urine Bacteria MANY (NEGATIVE) /HPF Urine Mucus MODERATE (NEGATIVE) /HPF Urine Culture Reflexed YES (NO) Urine Glucose NEGATIVE (NEGATIVE) mg/dL Specimen Received 08/03/18 2340 08/03/18 Range/Units 23:21 WBC 6.9 (4.0-10.5) K/mm3 RBC 3.79 L (4.1-5.4) M/mm3 Hgb 10.8 L (12.0-16.0) gm/dl Hct 33.9 L (35-47) % MCV 89.4 (78-100) fl MCH 28.4 (26-32) pg MCHC 31.9 L (32-36) g/dl RDW 14.1 H (11.5-14.0) % Plt Count 210 (150-450) K/mm3 MPV 11.1 H (6-9.5) fl Gran % 65.3 (36.0-66.0) % Eos # (Auto) 0.24 (0-0.5) Absolute Lymphs (auto) 1.73 (1.0-4.6) Absolute Monos (auto) 0.41 (0.0-1.3) Lymphocytes % 25.0 (24.0-44.0) % Monocytes % 5.9 (0.0-12.0) % Eosinophils % 3.5 (0.00-5.0) % Basophils % 0.3 (0.0-0.4) % Absolute Granulocytes 4.53 (1.4-6.9) Basophils # 0.02 (0-0.4) Sodium (137-145) mmol/L Potassium (3.5-5.1) mmol/L Chloride (98-107) mmol/L Carbon Dioxide (22-30) mmol/L Anion Gap (5-15) MEQ/L BUN (7-17) mg/dL Creatinine (0.52-1.04) mg/dL Estimated GFR ML/MIN Glucose (74-106) mg/dL Calcium (8.4-10.2) mg/dL Total Bilirubin (0.2-1.3) mg/dL AST (14-36) U/L ALT (0-35) U/L Alkaline Phosphatase (38-126) U/L Serum Total Protein (6.3-8.2) g/dL Albumin (3.5-5.0) g/dL Amylase (30-110) U/L Lipase (23-300) U/L Serum , Qual (Negative) Ur Collection Type Urine Color (YELLOW) Urine Appearance (CLEAR) Urine pH (5-6) Ur Specific [place] (1.005-1.025) Urine Protein (Negative) Urine Ketones (NEGATIVE) Urine Blood (0-5) Jamie/ul Urine Nitrite (NEGATIVE) Urine Bilirubin (NEGATIVE) Urine Urobilinogen (0-1) mg/dL Ur Leukocyte Esterase (NEGATIVE) Urine Microscopic RBC (0-2) /HPF Urine Microscopic WBC (0-5) /HPF Ur Epithelial Cells (FEW) /HPF Urine Bacteria (NEGATIVE) /HPF Urine Mucus (NEGATIVE) /HPF Urine Culture Reflexed (NO) Urine Glucose (NEGATIVE) mg/dL Specimen Received - Progress Progress: improved Progress Note: 08/04/18 00:02 23-year-old white female with history of a delivery triplets 3 weeks ago arrives with complaint of pelvic pain initially described as abdominal pain in her hips. She states that she feels like she had increased bleeding today apparently passed a large clot. On physical examination patient with minimal suprapubic tenderness scar has healed well there is no rebound bowel sounds are positive. I've asked the nurse to check the patient as far as bleeding really they see no obvious bleeding on checking the patient pelvic exam otherwise is not performed at this time. She did state that she had some paresthesias of her legs however she is walking well and moving all extremities within normal neurologic examination. Patient's labs bleeding CBC and CMP are essentially normal. Unfortunately the patient does have a urinary tract infection. Will go ahead and give the patient 1 g Rocephin IV. Patient has apparently nursing Will plan on placing the patient on Keflex 500 mg 4 times a day for 7 days. Patient will need to follow-up with her family doctor. I've discussed possible pain medications with this patient patient is nursing she is taking Advil and Tylenol. She does not want to waste milk and she prefers not to take any additional pain medications at this time. Patient's orthostatic vital signs are stable and she has stable vital signs at this time. - Departure Time of Disposition: 00:06 Departure Disposition: Home Clinical Impression: Vaginal bleeding, history of recent c section Abdominal pain Qualifiers: Abdominal location: unspecified location Qualified Code(s): R10.9 - Unspecified abdominal pain Condition: Fair Critical Care Time: No Referrals: DOCTOR,NO FAMILY [Primary Care Provider] - Additional Instructions: Return home. Keflex 500 mg 4 times a day for 7 days. Continue Tylenol every 4 hours or ibuprofen as needed for pain. Plenty of fluids. 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 Call and schedule an appointment. Return for acute distress or for severe symptoms. Prescriptions: Cephalexin Mh 500 mg [Keflex 500 mg] 500 mg PO Q6H #28 capsule
[2018-08-03 23:26] LABS: BASOPHIL % 0.3 % (0.0-0.4); Basophil (Absolute #) 0.02 (0-0.4); Eosinophil % 3.5 % (0.00-5.0); Eosinophil (Absolute #) 0.24 (0-0.5); Granulocyte Absolute (ANC) 4.53 (1.4-6.9); Granulocytes % 65.3 % (36.0-66.0); Hematocrit 33.9 % (35-47); Hemoglobin 10.8 gm/dl (12.0-16.0); Lymphocyte (Absolute #) 1.73 (1.0-4.6); Mean Cell Volume 89.4 fl (78-100); Mean Corpuscular Hgb Concent. 31.9 g/dl (32-36); Mean Platelet Volume 11.1 fl (6-9.5); Monocyte (Absolute #) 0.41 (0.0-1.3); Monocytes % 5.9 % (0.0-12.0); Platelet Count 210 K/mm3 (150-450); Red Blood Count 3.79 M/mm3 (4.1-5.4); Red Cell Distribution Width 14.1 % (11.5-14.0); White Blood Count 6.9 K/mm3 (4.0-10.5)
[2018-08-03 23:27] LABS: Mean Corpuscular Hemoglobin 28.4 pg (26-32)
[2018-08-03] MEDS ORDERED: Sodium Chloride 0.9% 1000 ML 1,000 ML ONE (23:30)
[2018-08-03 23:39] LABS: ALBUMIN 3.8 g/dL (3.5-5.0); ALKALINE PHOSPHATASE 102 U/L (38-126); AMYLASE 52 U/L (30-110); ANION GAP 11.4 MEQ/L (5-15); BLOOD UREA NITROGEN 8 mg/dL (7-17); CHLORIDE 106 mmol/L (98-107); Calcium 8.9 mg/dL (8.4-10.2); Carbon Dioxide 28 mmol/L (22-30); Creatinine 1 0.73 mg/dL (0.52-1.04); Glucose 79 mg/dL (74-106); LIPASE 139 U/L (23-300); Potassium 3.5 mmol/L (3.5-5.1); SGOT/AST 24 U/L (14-36); SGPT/ALT 21 U/L (0-35); SODIUM 142 mmol/L (137-145); Total Protein 6.3 g/dL (6.3-8.2)
[2018-08-03 23:52] LABS: Appearance CLOUDY (CLEAR); Bacteria MANY /HPF (NEGATIVE); Bilirubin NEGATIVE (NEGATIVE); Blood 250 Ery/ul (0-5); Epithelial Cells MODERATE /HPF (FEW); Glucose NEGATIVE (NEGATIVE); Ketones NEGATIVE (NEGATIVE); Leukocyte Esterase 2+ (NEGATIVE); Mucus MODERATE /HPF (NEGATIVE); Nitrite NEGATIVE (NEGATIVE); Protein,Urine Dip 30 (Negative); RBC 50-100 /HPF (0-2); Specific Gravity 1.015 (1.005-1.025); Urobilinogen NORMAL mg/dL (0-1); WBC >100 /HPF (0-5)
[2018-08-04] MEDS ORDERED: ROCEPHIN 1 Gm-D5w 50 ml Bag** 1 G/50 ML IVPB IV STA (00:01)
[2018-08-04] MEDS ORDERED: ROCEPHIN 1 Gm-D5w 50 ml Bag** 1 G/50 ML IVPB IV ONE (00:11)
[2018-08-04 00:28] VITALS: BP 116/76; PULSE 88; O2SAT 97
== END 2018-08-04 00:28 | disposition home or self-care (01) ==
LOC: ED 22:11
DX: O72.1 Other immediate postpartum hemorrhage (principal); O86.20 Urinary tract infection following delivery, unspecified; R10.9 Unspecified abdominal pain; R20.2 Paresthesia of skin
CPT/HCPCS: 36000; 36415; 80053; 81000; 82150; 83690; 84703; 85025; 87040; 87086; 96360; 96365; 99284; J0696